=== PATIENT | female | born 1980 | race Caucasian/White ===

== ENCOUNTER → 2016-07-29 | Outpatient (REF) | payer BC ==
[2016-07-29 18:44] LABS: BASO % 0.3 % (0.0-1.0); EOS # 0.1 K/mm3 (0.0-0.50); EOS % 1.1 % (0.0-3.0); LARGE UNSTAINED CELL # 0.1 K/mm3 (0.0-0.4); LARGE UNSTAINED CELL % 1.1 % (0.0-4.0); LYMPH # 2.7 K/mm3 (1.5-4.5); LYMPH % 22.4 % (24.0-44.0); MEAN CORPUSCULAR HEMOGLOBIN 33.8 pg (27.0-33.0); MEAN CORPUSCULAR HGB CONC 34.8 g/dl (32.0-36.5); MEAN CORPUSCULAR VOLUME 97.1 fl (80.0-96.0); MONO # 0.4 K/mm3 (0.0-0.8); MONO % 3.4 % (0.0-5.0); NEUTROPHILS # 8.6 K/mm3 (1.8-7.7); NEUTROPHILS % 71.7 % (36.0-66.0); PLATELET COUNT, AUTOMATED 254 k/mm3 (150-450); RED CELL DISTRIBUTION WIDTH 11.9 % (11.5-14.5)
[2016-07-29 19:02] LABS: FREE T4 1.15 NG/DL (0.76-1.46)
== END ==
LOC: M SFHCADAM 14:46
PROVIDERS: ATTEND Family Medicine
DX: N92.6 Irregular menstruation, unspecified (principal); E66.9 Obesity, unspecified

== ENCOUNTER → 2016-08-26 | Outpatient (REF) | payer BC | LOC: M SFHCADAM 18:55 | PROVIDERS: ATTEND Family Medicine | DX: Z12.4 Encounter for screening for malignant neoplasm of cervix (principal) | CPT/HCPCS: 87081; 87110; 87205; G0123 ==

== ENCOUNTER 2017-03-07 21:13 | Emergency (ER) | payer BC ==
[2017-03-07] MEDS: ACETAMINOPHEN 325 MG TAB PO (22:12)
[2017-03-07] MEDS: PENICILLIN V POTASSIUM 500 MG TAB PO (22:12)
== END 2017-03-07 22:21 | disposition home or self-care (01) ==
LOC: M ED 21:13
DX: J02.0 Streptococcal pharyngitis (principal); F17.200 Nicotine dependence, unspecified, uncomplicated
CPT/HCPCS: 87880

== ENCOUNTER → 2017-03-11 | Outpatient (REF) | payer BC ==
[2017-03-11 19:14] LABS: HEMATOCRIT 43.6 % (36.0-47.0); HEMOGLOBIN 14.4 g/dl (12.0-16.0); MEAN CORPUSCULAR HEMOGLOBIN 31.4 pg (27.0-33.0); PLATELET COUNT, AUTOMATED 197 10^3/uL (150-450); RED BLOOD COUNT 4.59 10^6/uL (4.00-5.40); RED CELL DISTRIBUTION WIDTH 13.1 % (11.5-14.5)
[2017-03-11 19:17] LABS: ADD MANUAL DIFFER YES; DIFF SLIDE NUMBER 336; POSITIVE DIFF POS FLAG; POSITIVE MORPH POS FLAG; WHITE BLOOD COUNT 9.7 10^3/uL (4.0-10.0)
[2017-03-11 20:07] LABS: ATYPICAL LYMPH 11 % (0-5); BANDS 1 % (< 11); LYMPHOCYTES 47 % (16-52); MONOCYTES 3 % (0-8); NEUTROPHILS 38 % (35-75)
[2017-03-11 20:08] LABS: PLATELET ESTIMATE NORMAL (NORMAL)
[2017-03-12 08:07] LABS: CONTROL LINE MONO RF C INT CTR LINE PRESENT; MONO REFLEX EBV COMP POSITIVE (NEGATIVE)
== END ==
LOC: M LAB REF 18:36 → M LABDRWAD 18:37
DX: J02.9 Acute pharyngitis, unspecified (principal)
CPT/HCPCS: 85025

== ENCOUNTER 2017-03-13 18:11 | Emergency (ER) | payer BC ==
[2017-03-13] MEDS: KETOROLAC 30 MG/ML VIAL (J1885) IV (19:27)
[2017-03-13] MEDS: NS 1,000 ML IV (19:27)
[2017-03-13 19:40] LABS: HEMATOCRIT 42.4 % (36.0-47.0); HEMOGLOBIN 14.5 g/dl (12.0-16.0); MEAN CORPUSCULAR HEMOGLOBIN 31.4 pg (27.0-33.0); MEAN CORPUSCULAR HGB CONC 34.2 g/dl (32.0-36.5); MEAN CORPUSCULAR VOLUME 91.8 fl (80.0-96.0); PLATELET COUNT, AUTOMATED 206 10^3/uL (150-450); RED BLOOD COUNT 4.62 10^6/uL (4.00-5.40); RED CELL DISTRIBUTION WIDTH 12.5 % (11.5-14.5)
[2017-03-13 19:43] LABS: ADD MANUAL DIFFER YES; DIFF SLIDE NUMBER 390; POSITIVE MORPH POS FLAG
[2017-03-13 19:47] LABS: KETONE, URINE AUTO RFX NEGATIVE (NEGATIVE); LEUKOCYTE ESTERASE UR AUTO RFX NEGATIVE (NEGATIVE); NITRITE, URINE AUTO RFX NEGATIVE (NEGATIVE); RBC, URINE AUTO RFX 2 /HPF (0-3); SPECIFIC GRAVITY UR AUTO RFX 1.004 (1.002-1.035); SQUAM EPITHELIAL CELL UR AURFX 3 /HPF (0-6); WBC, URINE AUTO RFX 0 /HPF (0-3)
[2017-03-13 20:12] LABS: CONTROL LINE MONO RF C INT CTR LINE PRESENT; MONO REFLEX EBV COMP POSITIVE (NEGATIVE)
[2017-03-13 20:18] LABS: ALBUMIN 3.8 GM/DL (3.2-5.2); ALBUMIN/GLOBULIN RATIO 0.93 (1.00-1.93); ALKALINE PHOSPHATASE 191 U/L (45-117); ALT/SGPT 304 U/L (12-78); ANION GAP 5 MEQ/L (8-16); AST/SGOT 179 U/L (7-37); BILIRUBIN,DIRECT 0.3 MG/DL (0.0-0.2); BILIRUBIN,TOTAL 0.8 MG/DL (0.2-1.0); BLOOD UREA NITROGEN 7 MG/DL (7-18); CALCIUM LEVEL 8.8 MG/DL (8.5-10.1); CARBON DIOXIDE LEVEL 30 MEQ/L (21-32); CHLORIDE LEVEL 103 MEQ/L (98-107); CREATININE FOR GFR 0.89 MG/DL (0.55-1.02); GLOMERULAR FILTRATION RATE > 60.0 (>60); GLUCOSE, FASTING 85 MG/DL (70-105); LIPASE 188 U/L (73-393); POTASSIUM SERUM 3.9 MEQ/L (3.5-5.1); SODIUM LEVEL 138 MEQ/L (136-145); TOTAL PROTEIN 7.9 GM/DL (6.4-8.2)
[2017-03-13 20:56] LABS: ATYPICAL LYMPH 30 % (0-5); EOSINOPHILS 1 % (0-5); LYMPHOCYTES 22 % (16-52); MONOCYTES 4 % (0-8); NEUTROPHILS 43 % (35-75)
[2017-03-13 20:57] LABS: PLATELET ESTIMATE NORMAL (NORMAL)
== END 2017-03-13 20:59 | disposition home or self-care (01) ==
LOC: M ED 18:11
DX: J02.0 Streptococcal pharyngitis (principal); B27.90 Infectious mononucleosis, unspecified without complication; F17.210 Nicotine dependence, cigarettes, uncomplicated
CPT/HCPCS: J1885

== ENCOUNTER 2018-07-22 11:54 | Emergency (ER) | payer BC ==
[~2018-07-22] VITALS: Ht 160 cm; Wt 88.9 kg
[2018-07-22 11:54] VITALS: BP 147/72
[~2018-07-22 11:54] MED LIST: CLEO300C2 PO; IBUP80TA PO; PENI500T PO; ZOFR4TAB14 PO
== END 2018-07-22 14:30 | disposition left against medical advice (07) ==
LOC: M ED 11:54
DX: T30.0 Burn of unspecified body region, unspecified degree (principal); Y92.9 Unspecified place or not applicable; Y93.9 Activity, unspecified; Z53.21 Procedure and treatment not carried out due to patient leaving prior to being seen by health care provider

== ENCOUNTER → 2018-12-30 | Outpatient (CLI) | payer OTHER ==
--- NOTE | 2018-12-30 17:37 | REP ---
LEFT SHOULDER, THREE VIEWS: There is no evidence of an acute fracture, dislocation or intrinsic bone disease. IMPRESSION: No fracture or dislocation. Electronically Signed by Rubio Bhakta MD 01/02/2019 10:05 A
--- NOTE | 2018-12-30 17:38 | REP ---
LEFT HUMERUS, TWO VIEWS: There is no evidence of an acute fracture, dislocation or intrinsic bone disease. IMPRESSION: No fracture or dislocation. Electronically Signed by Rubio Bhakta MD 01/02/2019 10:05 A
== END ==
LOC: M LRY 16:27
PROVIDERS: ATTEND Nurse Practitioner Family
DX: M25.512 Pain in left shoulder (principal); M79.602 Pain in left arm

== ENCOUNTER → 2019-01-20 | Outpatient (CLI) | payer OTHER ==
--- NOTE | 2019-01-20 12:54 | REP ---
MRI left shoulder without contrast: History: Impingement. Rule out rotator cuff tear. Comparison radiographs December 30, 2018. Technique: Axial, oblique coronal, and oblique sagittal imaging planes utilized for T1 and T2-weighted scans obtained with and without fat saturation. MRI findings: The left glenohumeral and acromioclavicular joints are normally aligned. There is minimal hypertrophy at the AC joint superiorly and a tiny periarticular cyst is seen along the superior aspect of the AC joint. There is also a tiny sliver of subacromial bursal fluid. There is a subcortical cyst in the humeral head just beneath the bony bicipital groove. Biceps tendon is unremarkable. Infraspinatus and subscapularis tendons appear intact. There is mild increased signal intensity in the distal supraspinatus tendon on oblique coronal T1 and T2-weighted scans and partial thickness distal tendon insertion tear is suspected. No superior or anterior or posterior labral tear is appreciated. No significant joint effusion. Impression: Subcortical cyst formation in the humeral head. Tendonitis tendinosis change in the distal supraspinatus. Suspect partial thickness distal supraspinatus insertion tear. Minimal hypertrophy at the AC joint with a small periarticular cyst superior to the AC joint. Tiny amount of bursal fluid. Electronically Signed by Jeramy Elizabeth MD 01/20/2019 12:58 P
== END ==
LOC: M RAD 09:19
PROVIDERS: ATTEND Orthopaedic Surgery Sports Medicine
DX: M75.42 Impingement syndrome of left shoulder (principal); M85.612 Other cyst of bone, left shoulder

== ENCOUNTER → 2019-08-02 | Outpatient (CLI) | payer BC | LOC: M LABSMTC 14:04 | PROVIDERS: ATTEND Family Medicine | DX: Z03.818 Encounter for observation for suspected exposure to other biological agents ruled out (principal) ==

== ENCOUNTER → 2020-11-25 | Outpatient (REF) | LOC: M LABSMTC 10:45 | PROVIDERS: ATTEND Pediatrics | DX: Z20.822 Contact with and (suspected) exposure to COVID-19 (principal); Z11.59 Encounter for screening for other viral diseases ==

== ENCOUNTER → 2020-11-29 | Outpatient (REF) | LOC: M LABSMTC 10:11 | PROVIDERS: ATTEND Pediatrics | DX: Z20.822 Contact with and (suspected) exposure to COVID-19 (principal) ==

== ENCOUNTER → 2021-01-26 | Outpatient (REF) ==
[2021-01-26 14:21] LABS: RSV AMPLIFICATION NEGATIVE (NEGATIVE)
== END ==
LOC: M LABSMTC 09:27
PROVIDERS: ATTEND Pediatrics
DX: Z11.52 Encounter for screening for COVID-19 (principal)

== ENCOUNTER → 2021-03-16 | Outpatient (REF) | LOC: M LABSMTC 14:00 | PROVIDERS: ATTEND Family Medicine | DX: Z20.822 Contact with and (suspected) exposure to COVID-19 (principal) ==

== ENCOUNTER → 2021-03-19 | Outpatient (REF) | LOC: M LABSMTC 09:09 | PROVIDERS: ATTEND Family Medicine | DX: Z20.822 Contact with and (suspected) exposure to COVID-19 (principal); Z11.52 Encounter for screening for COVID-19 ==